=== PATIENT | female | born 1990 | race Caucasian/White ===

== ENCOUNTER 2018-07-05 12:47 | Emergency (ER) | payer SELFPAY ==
[2018-07-05 13:05] VITALS: BP 100/66; PULSE 88; TEMP 98.3; O2SAT 100
[2018-07-05 13:57] VITALS: RESP 20
== END 2018-07-05 14:30 | disposition left against medical advice (07) ==
LOC: C.ER 12:47
DX: Z02.89 Encounter for other administrative examinations (principal); R10.30 Lower abdominal pain, unspecified